=== PATIENT | female | born 1990 | race Caucasian/White ===

== ENCOUNTER → 2019-12-11 | Outpatient (CLI) | payer BC ==
--- NOTE | 2019-12-11 16:11 | Diagnostic Imaging Report ---
EXAMINATION: OB ultrasound. INDICATION: Bleeding. COMPARISON: There are no prior studies available for comparison. FINDINGS: There is a poorly defined gestational sac-like structure within the uterus containing an irregular soft tissue density. There is a suggestion of a skull amidst this soft tissue density. There is no cardiac activity identified. I suspect these findings are related to a spontaneous . The soft tissue component within the gestational sac however, is somewhat prominent.. The possibility that this finding is related to a molar should be considered. Correlation with the patient's beta-hCG levels would be recommended. There is no pelvic mass or free fluid collection evident. The ovaries are unremarkable. IMPRESSION: 1. There is an irregular sac-like structure within the uterus containing a prominent soft tissue density. These findings may be related to a spontaneous along, although a molar should also be considered. Recommendations as above. 2. There is no acute abnormality noted otherwise. 3. These results were discussed with Dr. Prince in [place]. Dictated by: Dictated on workstation # [id number]
== END ==
LOC: RAD 14:24
PROVIDERS: ATTEND Obstetrics & Gynecology
DX: O20.9 Hemorrhage in early pregnancy, unspecified (principal); O34.591 Maternal care for other abnormalities of gravid uterus, first trimester; N85.8 Other specified noninflammatory disorders of uterus; Z3A.00 Weeks of gestation of pregnancy not specified
CPT/HCPCS: 76801; 76817

== ENCOUNTER 2020-12-03 08:29 | Outpatient (RCR) | payer BC | END 2020-12-24 | disposition home or self-care (01) | PROVIDERS: ATTEND Physical Therapist | DX: M54.2 Cervicalgia (principal); M54.6 Pain in thoracic spine ==

== ENCOUNTER 2021-02-11 08:06 | Outpatient (RCR) | payer BC | END 2021-04-07 13:36 | disposition home or self-care (01) | PROVIDERS: ATTEND Physical Therapist | DX: O26.899 Other specified pregnancy related conditions, unspecified trimester (principal); Z3A.00 Weeks of gestation of pregnancy not specified ==